=== PATIENT | male | born 1995 | race Caucasian/White ===

== ENCOUNTER 2021-05-06 19:11 | Emergency (ER) | payer BC, SELFPAY ==
[2021-05-06 19:25] VITALS: BP 112/71; PULSE 65; RESP 18; TEMP 36.4; O2SAT 99
--- NOTE | 2021-05-06 19:50 | ED.EAR ---
HPI - Ear Problem General Chief complaint: Ear Stated complaint: rt ear clogged Source: patient Mode of arrival: ambulatory History of Present Illness HPI Narrative: This is a 26-year-old male who presented to urgent care with complaints of right ear congestion and decreased hearing due to wax buildup. Patient notes that in the past he has had the same problem and had to come and get his ears flushed. The patient denies ear pain, ear discharge, foreign object, SOB, CP, palpitation, extremity numbness, lightheadedness, dizziness, constipation, diarrhea, chills, or fever. Related Data Home Medications Medication Instructions Recorded Confirmed lithium carbonate 300 mg PO DAILY 05/06/21 05/06/21 sertraline 100 mg PO DAILY 05/06/21 05/06/21 Allergies Allergy/AdvReac Type Severity Reaction Status Date / Time No Known Allergies Allergy Verified 05/06/21 19:17 Review of Systems Review of Systems: A 14 organ system Review of Systems was performed and pertinent positives included in the HPI, otherwise remaining ROS is negative. Exam Narrative: GENERAL: This is a well-nourished, well-developed patient, in no apparent distress. HEAD: normocephalic, atraumatic. EYES: PERRL. Sclera clear/white. Vision is grossly intact. EARS: External ears normal, audit canal cerumen buildup TMs erythema without perforatatio. Hearing grossly intact. NOSE: External nose normal with no obvious nasal discharge, nares without redness, no rhinorrhea. THROAT: Mucous membranes moist, posterior pharynx clear. NECK: Neck supple, non-tender without lymphadenopathy, masses or thyromegaly. CARDIOVASCULAR: Regular rate and rhythm without murmurs, gallops, or rubs. RESPIRATORY: Clear to auscultation. Breath sounds equal bilaterally. No wheezes, rales, or rhonchi. GASTROINTESTINAL: Abdomen soft, non-tender, nondistended. Bowel sounds are active. No hepato-splenomegaly, or palpable masses. No guarding. SKIN: warm, intact with no suspicious lesions or rash, good texture and turgor. NEURO: awake, alert, and oriented to person, place and time. There were no obvious focal neurologic abnormalities. Steady gait EXTREMITIES: Normal range of motion. No edema. No calf tenderness. Negative Homans sign bilaterally. BACK: Nontender without deformity or crepitance. No flank tenderness. Course Course Emergency Course: Patient will be diagnosed with otitis media and will discharge home with Augmentin Level of Care: Express Care Visit Vital Signs Vital signs: Vital Signs Temperature 97.6 F 05/06/21 19:25 Pulse Rate 65 05/06/21 19:25 Respiratory Rate 18 05/06/21 19:25 Blood Pressure 112/71 05/06/21 19:25 Pulse Oximetry 99 05/06/21 19:25 Temperature 97.6 F 05/06/21 19:25 Pulse Rate 65 05/06/21 19:25 Respiratory Rate 18 05/06/21 19:25 Blood Pressure 112/71 05/06/21 19:25 Pulse Oximetry 99 05/06/21 19:25 Medical Decision Making Differential Diagnosis Differential Diagnosis: Otitis media, versus otitis externa versus foreign object Vital Signs Vital Signs: Vital Signs Temperature 97.6 F 05/06/21 19:25 Pulse Rate 65 05/06/21 19:25 Respiratory Rate 18 05/06/21 19:25 Blood Pressure 112/71 05/06/21 19:25 Pulse Oximetry 99 05/06/21 19:25 Temperature 97.6 F 05/06/21 19:25 Pulse Rate 65 05/06/21 19:25 Respiratory Rate 18 05/06/21 19:25 Blood Pressure 112/71 05/06/21 19:25 Pulse Oximetry 99 05/06/21 19:25 Discharge Plan Discharge Clinical Impression: Otitis media Qualifiers: Otitis media type: unspecified Laterality: right Qualified Code(s): H66.91 - Otitis media, unspecified, right ear Patient Disposition: Home, Self-Care Condition: Stable Instructions: Antibiotic Form, Ear Infection (ED) Additional Instructions: Follow up with your provider in 1-2 weeks Take all medications as prescribed How are ear infections treated? - Doctors can treat ear infections with antibiotics. These me
[2021-05-06 19:52] VITALS: BP 112/71; PULSE 65; RESP 18; TEMP 36.4; O2SAT 99
== END 2021-05-06 19:50 | disposition home or self-care (01) ==
PROVIDERS: Emergency Provider Nurse Practitioner
DX: H66.91 Otitis media, unspecified, right ear (principal); H61.23 Impacted cerumen, bilateral
CPT/HCPCS: 69209; 99213; G0463